=== PATIENT | female | born 1990 | race Two or more races ===

== ENCOUNTER 2016-07-19 15:27 | Emergency (ER) | payer OTHER ==
[2016-07-19] MEDS ORDERED: MAALOX/LIDO2%VISC/SIMETHICONE 40 ML BOT ONE (17:59)
[2016-07-19 18:10] LABS: ABSOLUTE NEUTROPHIL COUNT 4.8 K/mm3 (1.8-7.7); BASO % 0.5 % (0.2-1.0); EOS # 0.1 (0.0-0.5); EOS % 0.9 % (0.9-2.9); HEMATOCRIT 40.9 % (37.0-47.0); HEMOGLOBIN 13.9 gm/l (12.0-16.0); IMM NEUT% 0.3 % (0-1); MEAN CELL VOLUME 94.2 fl (81.0-99.0); MEAN PLATELET VOLUME 10.5 fl (7.4-10.4); MONO # 0.6 (0.0-0.8); MONO % 7.5 % (4-12); NEUT % 63.8 % (43-75); PLATELET COUNT 220 K/mm3 (130-400); RED CELL DISTRIBUTION WIDTH 11.7 % (11.5-14.5)
[2016-07-19 18:33] LABS: ALB/GLOB RATIO 1.1 (>1.0); ALBUMIN 3.8 gm/dL (3.5-5.7); CALCIUM 9.4 mg/dL (8.6-10.3)
== END 2016-07-19 18:58 | disposition home or self-care (01) ==
LOC: ED 15:27
DX: K29.70 Gastritis, unspecified, without bleeding (principal)
CPT/HCPCS: 83690; 85025; 80053; 99283 ×2; A9270